=== PATIENT | female | born 1945 | race Caucasian/White ===

== ENCOUNTER 2020-09-14 16:10 | Emergency (ER) | payer MEDICARE, OTHER, SELFPAY ==
[2020-09-14 16:17] VITALS: BP 132/63; PULSE 71; RESP 16; TEMP 36.4; O2SAT 98; BMI 45.9
--- NOTE | 2020-09-14 16:23 | PC.NURSE ---
1613: called from waiting room without answer
--- NOTE | 2020-09-14 17:27 | PC.NURSE ---
Fall on 08/22 initially had pain in center of back in mid thoracic pain has changed to right upper back lateral to spine. Worse with movement and deep breath. Had xray done at [facility] after fall on 08/22.
--- NOTE | 2020-09-14 18:01 | ED.BACK ---
HPI - Back Pain/Injury General Chief Complaint: Back Pain/Injury Stated Complaint: SHARP PAIN IN BACK Time Seen by Provider: 09/14/20 17:59 Source: patient Mode of arrival: Ambulatory Limitations: no limitations History of Present Illness HPI Narrative: 75-year-old female nonsmoker presents with a chief complaint of a sharp pain in the paraspinal musculature of her right upper back over the past few days. She denies fever, chills, cough, shortness of breath. She denies dysuria, frequency, urgency, hematuria. She had a fall a few weeks ago and had been seen at an outside facility with imaging performed. No fractures noted. A few days later she was seen at a walk in clinic and had imaging of her thoracicspine which had no findings. She states her pain is worse with motion and improves with rest. She denies any radiation of her pain. Related Data Home Medications Medication Instructions Recorded Confirmed [MIDRIN] #0 04/08/17 acetaminophen-codeine 1 tab PO #0 04/08/17 allopurinol 100 mg PO BID #0 04/08/17 aspirin 81 mg PO QDAY #0 04/08/17 atenolol 50 mg PO BID #0 04/08/17 doxepin 10 mg PO #0 04/08/17 doxepin 50 mg PO #0 04/08/17 escitalopram oxalate [Lexapro] 10 mg PO QDAY #0 04/08/17 estradiol [Estrace] 0.5 mg #0 04/08/17 insulin aspart U-100 [Novolog 30 unit SQ SLIDE #0 04/08/17 U-100 Insulin aspart] loratadine [Claritin Liqui-Gel] 5 mg PO BID #0 04/08/17 losartan 25 mg PO QDAY #0 04/08/17 metformin [Glucophage XR] 500 mg PO TIDCC #0 04/08/17 oxybutynin chloride 5 mg PO BID #0 04/08/17 pantoprazole [Protonix] 40 mg BID #0 04/08/17 pravastatin 10 mg PO QDAY #0 04/08/17 Previous Rx's Medication Instructions Recorded lidocaine [Lidoderm] 1 patch TOPICAL DAILY #15 ea 09/14/20 Allergies Allergy/AdvReac Type Severity Reaction Status Date / Time oxycodone [From PERCOCET] Allergy Unknown Unverified 12/10/17 11:48 sumatriptan [From IMITREX] Allergy Unknown Unverified 12/10/17 11:48 Review of Systems Constitutional Constitutional: Denies chills, Denies fatigue, Denies fever(s), Denies frequent falls, Denies lethargy and Denies weakness Eyes Eyes: Denies change in vision, Denies eye discharge, Denies irritation and Denies loss of vision ENT Ears, Nose, Mouth, and Throat: Denies change in voice, Denies dizziness, Denies neck pain, Denies sore throat and Denies throat swelling Cardiovascular Cardiovascular: Denies chest pain, Denies irregular heart rhythm, Denies lightheadedness, Denies palpitations, Denies dyspnea, Denies dyspnea on exertion and Denies orthopnea Respiratory Respiratory: Denies cough, Denies dyspnea, Denies dyspnea on exertion and Denies wheezing Gastrointestinal Gastrointestinal: Denies abdominal pain, Denies change in bowel habits, Denies diarrhea, Denies nausea and Denies vomiting Musculoskeletal Musculoskeletal: Reports back pain, Denies neck pain and Denies numbness Integumentary/Breasts Skin/Breast: Denies pruritus, Denies erythema, Denies rash and Denies wounds Neurologic Neurologic: Denies behavioral changes, Denies confusion, Denies dizziness, Denies frequent falls, Denies loss of vision, Denies numbness and Denies weakness Psychiatric Psychiatric: Denies anxiety, Denies behavioral changes, Denies confusion, Denies depression, Denies homicidal ideation and Denies suicidal ideation Endocrine Endocrine: Denies fatigue, Denies flushing and Denies palpitations Hematologic/Lymphatic Hematologic/Lymphatic: Denies easy bruising Allergic/Immunologic Allergic/Immunologic: Denies urticaria, Denies throat swelling and Denies wheezing Patient History Smoking Status: Never smoker alcohol intake frequency: 0-2 drinks per day Substance Use Type: does not use Exam Narrative Exam Narrative: GEN: AOx3 and in mild distress, GCS 15 HEAD: aging bruising (yellowish brown) on face NECK: No midline bony tenderness, step-offs or crepitance EYES: Pupils are equal, round, and reactive to light and accommodation. Extraoccular muscles are intact bilaterally. There is no subconjunctival hemorrhage or exudate. CHEST: Lungs are clear to auscultation bilaterally and free of wheezes, rales, or rhonchi. Heart rate is regular rhythm, there are no murmurs, clicks, rubs, or gallops. There is no chest wall tenderness. ABD: Abdomen is soft and nontender. There is no guarding or rebound. Bowel sounds are normal in all 4 quadrants. There is no mass or organomegaly. BACK: Tender area lateral to spine overlying inferior ribs on her right back. Tender to palpation, no erythema, induration or warmth. No subcu emphysema or crepitance. Pain on ribs, does not seem to be overlying kidneys or soft tissue EXT: Full painless ROM of all extremities with no loss of sensation or strength. SKIN: Warm, pink, and dry. No erythema or rash Initial Vital Signs Initial Vital Signs: Vital Signs Temperature 97.5 F L 09/14/20 16:17 Pulse Rate 71 09/14/20 16:17 Respiratory Rate 16 09/14/20 16:17 Blood Pressure 132/63 09/14/20 16:17 Pulse Oximetry 98 09/14/20 16:17 Course Orders Ordered: ED Orders 09/14/20 18:43 XR ribs RT min 3V w CXR1V Stat Discontinued Medications Lidocaine (Lidocaine Patch 1 Each Adh..Patch) 1 each TOP NOW ONE Stop: 09/14/20 20:11 Last Admin: 09/14/20 20:22 Dose: 1 each Documented by: ARCHIE Vital Signs Vital signs: Vital Signs - 8 hr 09/14/20 20:33 Pulse Rate 61 Respiratory Rate 18 Blood Pressure 136/85 Pulse Oximetry 98 MDM - Back Pain/Injury Lab Data Labs: Urine Dip Bedside Urine Glucose Negative Bedside Urine Bilirubin - Negative Bedside Urine Ketone - Negative Urine Specific [place] 1.020 Bedside Urine Occult Blood - Negative Bedside Urine pH 6.0 Bedside Urine Protein - Negative Bedside Urine Urobilinogen - Negative Bedside Urine Nitrite - Negative Bedside Urine Leukocytes +/- 15 Esterase MDM Narrative Medical decision making narrative: Multiple etiologies for patient's symptoms considered including: [Musculoskeletal injury versus kidney infection versus other] Patient's symptoms improved over duration of stay with above-stated therapies. Findings and discharge diagnosis discussed with patient/family followed by verbalization of understanding Return precautions discussed with patient/family whom verbalize understanding. Discharge Plan Departure Patient Disposition: Home Clinical Impression: Thoracic back pain Qualifiers: Chronicity: acute Back pain laterality: right Qualified Code(s): M54.6 - Pain in thoracic spine Instructions: DI for Back Spasm Activity Restrictions/Additional Instructions: *You have been diagnosed with [ right sided thoracic back pain. Xray and urine are very reassuring. ] *What to do: *Take medications as directed *Follow up with your primary care provider in 2-3 days, call for an appointment. Let them know you were seen in the Emergency Department and that we ask that you be seen in follow up *Return to ER if you should have any new, worsening or concerning symptoms Prescriptions: New lidocaine [Lidoderm] 5 % adhesive patch,medicated 1 patch topical DAILY Qty: 15 RF: 0 No Action allopurinol 100 MG tablet 100 mg PO BID Qty: 0 RF: 0 losartan 25 MG tablet 25 mg PO QDAY Qty: 0 RF: 0 pantoprazole [Protonix] [address] for susp in packet 40 mg BID Qty: 0 RF: 0 atenolol 25 MG tablet 50 mg PO BID Qty: 0 RF: 0 estradiol [Estrace] 1 MG tablet 0.5 mg Qty: 0 RF: 0 pravastatin 10 MG tablet 10 mg PO QDAY Qty: 0 RF: 0 doxepin 50 MG capsule 50 mg PO Qty: 0 RF: 0 doxepin 10 MG capsule 10 mg PO Qty: 0 RF: 0 escitalopram oxalate [Lexapro] 10 MG tablet 10 mg PO QDAY Qty: 0 RF: 0 oxybutynin chloride 5 MG tablet 5 mg PO BID Qty: 0 RF: 0 aspirin 81 MG tablet,delayed release (DR/EC) 81 mg PO QDAY Qty: 0 RF: 0 loratadine [Claritin Liqui-Gel] 10 MG capsule 5 mg PO BID Qty: 0 RF: 0 insulin aspart U-100 [Novolog U-100 Insulin aspart] 100 UNIT/1 ML solution 30 unit SQ SLIDE Qty: 0 RF: 0 metformin [Glucophage XR] 500 MG tablet extended release 24 hr 500 mg PO TIDCC Qty: 0 RF: 0 acetaminophen-codeine 30 MG/300 MG tablet 1 tab PO Qty: 0 RF: 0 [MIDRIN] Qty: 0 RF: 0 Referrals: Kenrick Morrison MD [Primary Care Provider] -
--- NOTE | 2020-09-14 18:43 | DI.RAD.S_ITS ---
PROCEDURE: XR RIBS RT MIN 3V W CXR 1V INDICATIONS: fall with pain TECHNIQUE: 2 views of the right ribs were acquired, along with a single view chest. COMPARISON: None. FINDINGS: Surgical changes and devices: Bilateral shoulder arthroplasties. Cholecystectomy clips. Bones and chest wall: No fractures or dislocations. No suspicious bony lesions. Overlying soft tissues appear unremarkable. Lungs and pleura: No pleural effusions or pneumothorax. Lungs appear clear. Mediastinum: Mediastinal contours appear normal. Heart size is normal. IMPRESSION: No displaced rib fracture. Dictated by: Yoana Miller MD, PhD on 09/14/2020 at 19:06 Approved by: Yoana Miller MD, PhD on 09/14/2020 at 19:07
[2020-09-14] MEDS: LIDOCAINE PATCH 1 EACH ADH..PATCH TOP (20:22)
[2020-09-14 20:33] VITALS: BP 136/85; PULSE 61; RESP 18; O2SAT 98
== END 2020-09-14 20:34 | disposition home or self-care (01) ==
PROVIDERS: Emergency Provider Emergency Medicine; Family Provider Internal Medicine Gastroenterology; PCP Internal Medicine Gastroenterology
DX: M54.6 Pain in thoracic spine (principal); E11.8 Type 2 diabetes mellitus with unspecified complications; Z79.4 Long term (current) use of insulin
CPT/HCPCS: 71101; 81003; 99283